=== PATIENT | male | born 1935 | race Caucasian/White ===

== ENCOUNTER 2019-02-03 09:43 | Emergency (ER) | payer MEDICARE ==
[~2019-02-03 09:43] MED LIST: Iopamidol 370 76% 100 ML VIAL ONE
[2019-02-03 10:27] LABS: #Basophils 0.1 thou/uL (0.0-0.2); #Eosinphils 0.1 thou/uL (0.0-0.7); #Lymphocytes 0.9 thou/uL (1.20-3.40); #Monocytes 0.6 thou/uL (0.11-0.59); #Neutrophils 6.1 thou/uL (1.40-6.50); %Basophils 1.1 % (0.0-1.0); %Eosinophils 1.4 % (0.0-10.0); %Lymphocytes 11.4 % (21.0-51.0); %Monocytes 7.6 % (0.0-10.0); %Neutrophils 78.4 % (42.0-75.0); Hemoglobin 13.9 g/dL (14.0-18.0); Mean Corpuscular HGB CONC 34.3 g/dL (32.0-36.0); Mean Corpuscular Hemoglobin 31.6 pg (27.0-31.0); Mean Platelet Volume 7.7 fL (7.4-10.4); Platelet Count 149 thou/uL (130-400); RBC Distribution Width 12.2 % (11.5-14.5); Red Blood Cell (RBC) Count 4.42 mill/uL (4.70-6.10); White Blood Cell (WBC) Count 7.8 thou/uL (4.8-10.8)
[2019-02-03 10:33] LABS: ALT (SGPT) 15 U/L (8-55); AST (SGOT) 14 U/L (5-34); Alkaline Phosphatase 96 U/L (40-150); Anion Gap 13 mmol/L (10-20); BUN (Urea Nitrogen) 14 mg/dL (8.4-25.7); Bilirubin, Total 0.9 mg/dL (0.2-1.2); Calc. Creatinine Clearance 0 mL/min (70-130); Calcium 9.4 mg/dL (7.8-10.44); Carbon Dioxide 25 mmol/L (23-31); Chloride 110 mmol/L (98-107); Estimated GFR-MDRD 68; Globulin 2.5 g/dL (2.4-3.5); Glucose 100 mg/dL (83-110); Potassium 3.9 mmol/L (3.5-5.1); Protein, Total 6.5 g/dL (5.8-8.1); Sodium 144 mmol/L (136-145)
--- NOTE | 2019-02-03 11:54 | CT ---
CT ABDOMEN AND PELVIS WITH IV CONTRAST: Date: 02/03/19 HISTORY: Abdominal pain. FINDINGS: The lung bases are unremarkable. There is a tiny low density in the dome of the liver, too small to characterize. No calcified gallsto chelly are seen. The spleen, pancreas, and adrenal glands appear normal. There are bilateral perirenal calculi, largest on right measuring 3.0 mm. No calculi seen in the uret ers or the urinary bladder. No hydroureteronephrosis noted on either side. There is a heterogeneously enhancing 5 cm mass in the right kidney, suspicious for malignancy. No renal vein thrombosis seen. No free air, free fluid, or lymphadenopathy seen in the abdomen or pelvis. There are vascular calcifications without evidence of aneurysmal dilatation of the abdominal aorta. D egenerative changes are present in the spine. There is a left hip arthroplasty. No osteolytic lesions are seen. There is colonic diverticulosis. Small bowel loops are not abnormally dilated. There is segmental thi ckening of the sigmoid colon. The prostate is enlarged. There is mild pericolonic inflammatory change surrounding the sigmoid colon. A small hiatal hernia is present. A normal appearing appendix is present. IMPRESSION: 1. Sigmoid diverticulosis with diverticulitis. A colonoscopy should be performed after treatment to exclude mass. 2. Nonobstructing bilateral renal calculi. 3. 5 cm right renal mass suspicious for malignancy. 4. Small hiatal hernia. 5. Prostatic enlargement. CODE T. POS: TPC
== END 2019-02-03 11:13 | disposition home or self-care (01) ==
LOC: SCSER 09:43
DX: K57.32 Diverticulitis of large intestine without perforation or abscess without bleeding (principal); K59.00 Constipation, unspecified; N28.89 Other specified disorders of kidney and ureter; I10 Essential (primary) hypertension
CPT/HCPCS: 74177; 80053; 85025; 96374; J2270; Q9967

== ENCOUNTER 2019-02-14 19:53 | Emergency (ER) | payer MEDICARE ==
[2019-02-14 20:29] LABS: #Basophils 0.1 thou/uL (0.0-0.2); #Eosinphils 0.1 thou/uL (0.0-0.7); #Lymphocytes 0.9 thou/uL (1.20-3.40); #Monocytes 0.4 thou/uL (0.11-0.59); #Neutrophils 6.5 thou/uL (1.40-6.50); %Basophils 1.1 % (0.0-1.0); %Eosinophils 1.3 % (0.0-10.0); %Lymphocytes 11.3 % (21.0-51.0); %Monocytes 5.3 % (0.0-10.0); Hemoglobin 13.7 g/dL (14.0-18.0); Mean Corpuscular HGB CONC 34.8 g/dL (32.0-36.0); Mean Corpuscular Hemoglobin 31.8 pg (27.0-31.0); Mean Corpuscular Volume 91.2 fL (78.0-98.0); Platelet Count 216 thou/uL (130-400); RBC Distribution Width 12.1 % (11.5-14.5); Red Blood Cell (RBC) Count 4.32 mill/uL (4.70-6.10); White Blood Cell (WBC) Count 8.1 thou/uL (4.8-10.8)
[2019-02-14 20:42] LABS: ALT (SGPT) 26 U/L (8-55); AST (SGOT) 22 U/L (5-34); Alkaline Phosphatase 64 U/L (40-150); Anion Gap 13 mmol/L (10-20); BUN (Urea Nitrogen) 11 mg/dL (8.4-25.7); Bilirubin, Total 0.5 mg/dL (0.2-1.2); Calc. Creatinine Clearance 0 mL/min (70-130); Calcium 9.5 mg/dL (7.8-10.44); Carbon Dioxide 26 mmol/L (23-31); Chloride 107 mmol/L (98-107); Estimated GFR-MDRD 65; Globulin 2.4 g/dL (2.4-3.5); Glucose 117 mg/dL (83-110); Lipase 42 U/L (8-78); Potassium 3.7 mmol/L (3.5-5.1); Protein, Total 6.4 g/dL (5.8-8.1); Sodium 142 mmol/L (136-145)
[2019-02-14] MEDS ORDERED: Morphine 4 MG/ML VIAL ONE (20:46)
[2019-02-14] MEDS ORDERED: Ondansetron PF 4 MG/2 ML Vial ONE (20:46)
--- NOTE | 2019-02-14 22:52 | CT ---
CT Abdomen Pelvis W Con: 02/14/2019 8:47 PM CLINICAL INFORMATION: Abdominal pain COMPARISON: 02/03/2019 TECHNIQUE: Multiple contiguous axial images were obtained and a CT of the abdomen and pelvis with IV contrast. Oral contrast was administered. Coronal reformats were performed. FINDINGS: Lower Chest: within normal limits. Abdomen: Liver: within normal limits. Bile Ducts: Normal caliber. Gallbladder: No calcified gallstones. Normal caliber wall. Pancreas: within normal limits. Spleen: within normal limits. Adrenals: within normal limits. Kidneys: There is an enhancing right renal mass measures approximately 5 cm in size suspicious for a renal cell carcinoma. A nonobstructing 4 mm calcification is seen in the right kidney. There is a punctate 1 to 2 mm nonobstructing calcification in the left kidney. Pelvis: Reproductive Organs: No pelvic masses. Ureters: within normal limits. Bladder: within normal limits. Peritoneum: No ascites or free air, no fluid collection. Bowel: Scattered diverticula in the left colon. Normal small bowel and appendix. Mesentery and Retroperitoneum: No enlarged mesenteric or retroperitoneal lymph nodes. Vessels: Atherosclerotic calcifications. Abdominal Wall: within normal limits. Bones: Degenerative changes in the spine. The patient has a left hip arthroplasty. IMPRESSION: 1. Right renal mass concerning for a renal cell carcinoma 2. Nonobstructing bilateral renal calcifications 3. Diverticulosis
== END 2019-02-14 23:30 | disposition home or self-care (01) ==
LOC: SCSER 19:53
DX: K57.90 Diverticulosis of intestine, part unspecified, without perforation or abscess without bleeding (principal); I10 Essential (primary) hypertension; Z79.899 Other long term (current) drug therapy
CPT/HCPCS: 74177; 80053; 83605; 83690; 84484; 85025; 93005; 96361; 96374; 96375; J2270; J2405

== ENCOUNTER 2019-03-25 08:50 | Day surgery (SDC) | payer MEDICARE ==
[2019-03-24 12:54] VITALS: BMI 24.9
[2019-03-25 09:15] LABS: Hemoglobin 14.3 g/dL (14.0-18.0); Mean Corpuscular HGB CONC 33.4 g/dL (32.0-36.0); Mean Corpuscular Hemoglobin 31.1 pg (27.0-31.0); Mean Platelet Volume 6.9 fL (7.4-10.4); Platelet Count 160 thou/uL (130-400); RBC Distribution Width 12.3 % (11.5-14.5); Red Blood Cell (RBC) Count 4.59 mill/uL (4.70-6.10)
[2019-03-25 09:18] LABS: PTT 30.6 SEC (22.9-36.1); Prothrombin Time 13.1 SEC (12.0-14.7)
[2019-03-25 09:41] VITALS: BP 134/82; TEMP 97
--- NOTE | 2019-03-25 12:19 | CT ---
CT guided right renal mass biopsy INDICATION: Solid mass of the right kidney COMPARISON: Prior CT the abdomen and pelvis with contrast dated February 14, 2019 TECHNIQUE: Informed consent was obtained. The patient was brought into the CT suite and placed prone on the CT table. Preprocedure CT evaluation was performed for guidance purposes only. Site overlying the lower aspect of the posterior solid renal mass was identified. The site was chosen to h ave the needle pass below the 12th posterior rib. A timeout was performed. The patient underwent conscious sedation under guidance of the radiology nursing received 1 mg of IV Versed and 50 mcg of I V fentanyl. Please see the nursing notes for full details concerning the medications administered and vital signs. Site overlying the biopsy was prepped and draped in the usual sterile fashion. Buffe red 1% lidocaine was measured overlying subcutaneous tissues and underlying paraspinal musculature. Under CT fluoroscopic guidance, a 17-gauge 15 cm trocar needle was guided down to the lesion. Two sep arate core samples were obtained of the mass utilizing an 18-gauge core biopsy device and provided to pathology who was on site to verify adequacy of tissue sampling. After confirmation of adequacy of tissue sampling, the inner trocar was replaced within the needle and the needle was removed. Pressure was held at the biopsy site to hemostasis was obtained. Postprocedure images demonstrated a small perinephric hematoma surrounding the biopsy site. The patient tolerated the biopsy without difficulty. IMPRESSION: Successful CT-guided right renal mass biopsy. Two separate core samples were obtained Transcribed Date/Time: 03/25/2019 12:45 PM
--- NOTE | 2019-03-25 12:22 | RAD ---
Inspiratory and expiratory AP views of the chest INDICATION: History of renal biopsy FINDINGS: The lungs are clear. Heart size is normal. No pleural effusion or pneumothorax is identifie d. No acute osseous abnormality is evident. IMPRESSION: No pneumothorax identified.
== END 2019-03-25 13:30 | disposition home or self-care (01) ==
LOC: CT 08:50
PROVIDERS: ATTEND Urology
PROC: 0TB03ZX Excision of Right Kidney, Percutaneous Approach, Diagnostic (ICD-10-PCS; principal; 2019-03-25)
DX: C64.1 Malignant neoplasm of right kidney, except renal pelvis (principal); I10 Essential (primary) hypertension; K21.9 Gastro-esophageal reflux disease without esophagitis; M10.9 Gout, unspecified; N40.0 Benign prostatic hyperplasia without lower urinary tract symptoms; M54.41 Lumbago with sciatica, right side; N52.01 Erectile dysfunction due to arterial insufficiency; Z79.2 Long term (current) use of antibiotics; Z79.899 Other long term (current) drug therapy; Z88.0 Allergy status to penicillin; Z91.030 Bee allergy status
CPT/HCPCS: 36415; 50200; 71045; 77012; 85027; 85610; 85730; 88305; 88333; 88334; 88341; 88342

== ENCOUNTER 2019-03-26 08:47 | Outpatient (CLI) | payer MEDICARE ==
[~2019-03-26 08:47] MED LIST changes: +Fentanyl 100 MCG/2 ML VIAL ONE; -Iopamidol 370 76% 100 ML VIAL ONE; +Midazolam HCl 2 mg/2 ml Vial ONE; +Sodium Bicarbonate 2.5 MEQ/5 ML VIAL ONE
--- NOTE | 2019-03-26 09:08 | RAD ---
Chest 2 views HISTORY: Renal mass. Biopsy. COMPARISON: 03/25/2019. FINDINGS: Cardiac silhouette and pulmonary vasculature are unremarkable. Mediastinum is midline. No c onfluent airspace consolidation, pneumothorax, or pleural fluid evident. IMPRESSION: No active cardiopulmonary abnormalities are demonstrated.
--- NOTE | 2019-03-26 13:01 | NM ---
Radionucleotide bone scan HISTORY: Renal cell carcinoma. FINDINGS: Heterogeneous uptake at each shoulder, wrist, knee, and ankle has the appearance of arthrit is. Focal uptake involves the posterior aspect of the mid cervical spine, estimated to be at the C4-5 lev el on the posterior view. No photopenic defects are reliably demonstrated. IMPRESSION: Uptake at the left mid cervical spine favored to be related to arthritis, as degenerative changes also involve the peripheral joints. No reliable evidence of osseous metastasis.
== END 2019-03-26 08:48 | disposition home or self-care (01) ==
LOC: NM 08:47
PROVIDERS: ATTEND Urology
DX: N28.89 Other specified disorders of kidney and ureter (principal); M19.90 Unspecified osteoarthritis, unspecified site
CPT/HCPCS: 71046; 78306; A9503; J2250; J3010

== ENCOUNTER 2019-04-30 09:00 | Inpatient (IN) | payer MEDICARE ==
[2019-04-30 09:55] VITALS: BMI 25.7
[2019-05-08] MEDS ORDERED: Bupivacaine HCl 0.5%/Epinephrine 1:200,000/PF 30 ml Vial ONE (06:43)
[2019-05-08] MEDS ORDERED: Fentanyl 100 MCG/2 ML VIAL ONE ×2 (06:56→12:53)
[2019-05-08] MEDS ORDERED: Levofloxacin 500 mg/D5W 100 ml Premix Bag ONE (07:08)
[2019-05-08] MEDS ORDERED: Rocuronium Bromide 50 MG/5 ML VIAL ONE (09:26)
[2019-05-08] MEDS ORDERED: Ondansetron PF 4 MG/2 ML Vial ONE ×3 (09:27→14:07)
[2019-05-08] MEDS ORDERED: HYDROmorphone 2 MG/ML VIAL ONE (09:27)
[2019-05-08] MEDS ORDERED: Albumin 5% 500 ML ONE (10:24)
--- NOTE | 2019-05-08 13:07 | RAD ---
EXAM: CHEST ONE VIEW HISTORY: Post nephrectomy secondary to renal mass. COMPARISON: 03/26/2019 FINDINGS: The cardiac silhouette and pulmonary vasculature is within normal limits. There is increased density at the left lung base probably related to atelectasis. Tiny left pleural effusion is possibility. The lungs are otherwise clear. There are linear gas densities overlying the right lateral lung base w hich have the appearance most suggestive of subcutaneous emphysema. There is subcutaneous emphysema seen in the right supraclavicular region. No obvious pneumothorax is seen. Degenerative changes are s een in the spine. IMPRESSION: 1. Minimal patchy density left lung base which may be related to atelectasis with questionable tiny l eft pleural effusion. 2. Gas densities overlying right lower lateral chest which have the appearance more suggestive of sub cutaneous emphysema. There is prominent subcutaneous edema in a right supraclavicular and infraclavicular location. No obvious pneumothorax is seen.
[2019-05-08 13:10] LABS: #Lymphocytes 0.3 thou/uL (1.20-3.40); #Monocytes 0.1 thou/uL (0.11-0.59); #Neutrophils 8.7 thou/uL (1.40-6.50); %Basophils 0.1 % (0.0-1.0); %Eosinophils 0.3 % (0.0-10.0); %Lymphocytes 3.5 % (21.0-51.0); %Neutrophils 95.1 % (42.0-75.0); Hemoglobin 12.9 g/dL (14.0-18.0); Mean Corpuscular Hemoglobin 32.5 pg (27.0-31.0); Mean Corpuscular Volume 93.1 fL (78.0-98.0); Platelet Count 129 thou/uL (130-400); RBC Distribution Width 12.2 % (11.5-14.5); Red Blood Cell (RBC) Count 3.97 mill/uL (4.70-6.10); White Blood Cell (WBC) Count 9.1 thou/uL (4.8-10.8)
[2019-05-08 13:32] LABS: ALT (SGPT) 13 U/L (8-55); AST (SGOT) 17 U/L (5-34); Albumin 4.2 g/dL (3.4-4.8); Alkaline Phosphatase 82 U/L (40-150); Anion Gap 12 mmol/L (10-20); BUN (Urea Nitrogen) 17 mg/dL (8.4-25.7); Bilirubin, Total 0.9 mg/dL (0.2-1.2); Calc. Creatinine Clearance 55 mL/min (70-130); Calcium 8.3 mg/dL (7.8-10.44); Carbon Dioxide 21 mmol/L (23-31); Chloride 108 mmol/L (98-107); Estimated GFR-MDRD 58; Glucose 155 mg/dL (83-110); Potassium 3.9 mmol/L (3.5-5.1); Protein, Total 6.2 g/dL (5.8-8.1); Sodium 137 mmol/L (136-145)
[2019-05-08] MEDS ORDERED: HYDROcodone/Acetaminophen 5/325 mg Tablet PO PRN (13:34)
[2019-05-08] MEDS ORDERED: Mag-Al 1200 mg/1200 mg/30 ML UDCUP PO PRN (13:34)
[2019-05-08] MEDS ORDERED: diphenhydrAMINE 25 MG CAP PO PRN (13:34)
[2019-05-08] MEDS ORDERED: Bisacodyl 10 MG SUPP PR PRN (13:34)
[2019-05-08] MEDS ORDERED: Oxybutynin 5 MG TAB PO PRN (13:34)
[2019-05-08] MEDS ORDERED: Morphine 4 MG/ML VIAL SLOW IVP PRN (13:34)
[2019-05-08] MEDS ORDERED: hydrALAZINE 20 MG/ML VIAL SLOW IVP PRN (13:34)
[2019-05-08] MEDS ORDERED: Ondansetron PF 4 MG/2 ML Vial IVP PRN (13:34)
[2019-05-08] MEDS ORDERED: hydrALAZINE 20 MG/ML VIAL ONE (13:57)
[2019-05-08] MEDS ORDERED: Rocuronium Bromide 10 MG/ML (10ML VIAL) ONE (14:07)
[2019-05-08] MEDS ORDERED: diphenhydrAMINE 50 MG/ML VIAL ONE (14:07)
[2019-05-08] MEDS ORDERED: Dexamethasone 20 MG/5 ML VIAL ONE (14:07)
[2019-05-08] MEDS ORDERED: ePHEDrine 50 MG/ML VIAL ONE (14:07)
[2019-05-08] MEDS ORDERED: Lidocaine 2% PF 5 ML VIAL ONE (14:07)
[2019-05-08] MEDS ORDERED: PROPOFOL 200 MG/20 ML VIAL ONE (14:07)
[2019-05-08] MEDS ORDERED: Glycopyrrolate 0.2 MG/ML 5 ML SYRINGE ONE (14:07)
[2019-05-08] MEDS: Sodium Chloride 0.9% 1,000 ML IV SCH ×2 (15:25→21:22)
[2019-05-08] MEDS: HYDROcodone/Acetaminophen 5/325 mg Tablet PO PRN ×2 (15:51→20:08)
--- NOTE | 2019-05-08 16:06 | OP ---
DATE OF PROCEDURE: 05/08/2019 SERVICE: Urology. PREOPERATIVE DIAGNOSIS: Right renal cell carcinoma. POSTOPERATIVE DIAGNOSIS: Right renal cell carcinoma. PROCEDURE PERFORMED: Right robot-assisted radical nephrectomy. INDICATION FOR PROCEDURE: Mr. Abad is an 83-year-old white male, who initially presented to me with a 5 cm right renal mass. 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 We discussed several options including continued monitoring versus surgery, and given the size of the mass, we elected to go forward with radical nephrectomy. Risks and benefits were discussed, and he has agreed to proceed forward. DESCRIPTION OF PROCEDURE: After identification of armband and verification of consent, the patient was brought back to the operating room, where he underwent general anesthesia with endotracheal intubation. He was then placed in the modified left lateral decubitus position with all pressure points padded and arms and legs secured. He was then prepped and draped in usual sterile fashion. After appropriate time-out, a Veress needle entry was made just below the right subcostal margin using a Veress needle. Insufflation was carried out under high flow and low pressure until pneumoperitoneum was achieved. Standard robotic-assisted ports were placed with a 12-mm camera port lateral to the rectus, an 8-mm port below the subcostal margin, and the left arm 8-mm port in the left lower quadrant. 12-mm administrative personal assistant port was placed on the lower aspect lateral to the rectus and lateral to the medial umbilical ligament. The robot was then docked, and the surgical portion of the robot was begun. The white line of Toldt was divided using the monopolar scissors and the colon reflected medially. The lower pole was dissected free until the ureter was identified, and then this was elevated until the psoas muscle was identified. The posterior aspect of the kidney was cleared out. The duodenum was then identified and retracted gently medially until the IVC was seen. The IVC was used to isolate the left renal vein until the superior aspect of the renal vein was identified. The renal arteries were seen cephalad to the renal vein. Once enough space was cleared out both superior and inferior and posterior to the renal hilum, the surgical vascular loaded stapler with fixed up staple lines at a 2 mm distance was used with a 60 cm load. This was positioned over the hilum and fired. It required a total of 2 different staple loads to completely divide the renal hilum. There was one of the arteries did not get fully enclosed with the renal hilum, as the patient did have 2 renal arteries. This was subsequently identified shortly after the stapling, and 2 Hem-o-alessio clips placed on that artery and then the artery divided. The remainder of the kidney attachments to the hepatorenal ligaments and to the diaphragm and surrounding tissues were then either bluntly dissected or cauterized using the vessel sealer device on the robot circumferentially. Hem-o-alessio clip was applied to the ureter, and then the ureter divided using a vessel sealer. This was mobilized circumferentially until the entire kidney was removed with Gerota's fat still surrounding the kidney. We stayed relatively close to the upper pole of the kidney to avoid removing the adrenal gland. On preoperative CT, the adrenal was located extremely high behind the liver near the IVC approximately 3 cm away from the upper pole of the kidney; therefore, I fairly confident that the right adrenal gland was not removed during the operation. Once the kidney was completely mobilized and free, it was placed in a specimen bag by using a 15 mm EndoCatch bag. The 12 mm system port had to be switched out for a 15 mm port to do this. The retroperitoneum was then thoroughly irrigated with sterile saline and then suctioned out. Once dry, Tisseel spray was sprayed all over the renal bed on the fatty tissues and over the hilum. FloSeal was also applied over the hilum and then the Surgicel applied over this. The surgical robot was then undocked, and the 12-mm camera port was removed. This was closed with a Brent-Bianka using a camera through the 15 mm port, where the specimen bag was coming out. Once the camera port was closed, the extraction site was made through the 15 mm port by extending the incision laterally along Marlene's lines. Dissection was then carried out through the muscles and fascia using a Bovie electrocautery. It is quite possibly the epigastric artery was cut during this procedure as there was a relatively large artery that was encountered, which bled upon division with the Bovie. Each end of this was suture ligated using a 0 Vicryl to ligate both arteries until there was excellent hemostasis. Once the fascia was subsequently opened, the specimen bag was removed containing the kidney, which was sent off for routine pathologic evaluation. The fascia was then closed in a single layer using #1 PDS in a running fashion to close the entire incision. The subcutaneous fat was then closed with interrupted 0 Vicryl sutures, and the skin was closed with a 4-0 Monocryl. All port sites were closed with a 4-0 Monocryl and then Dermabond applied. The patient was then taken out of positioning, awakened and taken to PACU for recovery in stable condition. COMPLICATIONS: None. ESTIMATED BLOOD LOSS: 400 mL. RETAINED TUBES OR DRAINS: A 16-Cypriot Eso catheter. SPECIMENS: Right kidney and partial ureterectomy. DISPOSITION: The patient will be admitted to the hospital for postoperative recovery. Once he is stable for discharge, we will begin a surveillance process on outpatient basis. Job ID: [id number]
[2019-05-08] MEDS: Morphine 2 MG/ML SYRINGE SLOW IVP PRN ×2 (17:15→18:47)
[2019-05-08] MEDS ORDERED: Cepastat Lozenges 1 LOZ PO PRN (19:24)
[2019-05-08] MEDS: Docusate 100 MG CAP PO SCH (20:07)
[2019-05-09] MEDS: HYDROcodone/Acetaminophen 5/325 mg Tablet PO PRN ×2 (02:07→10:45)
[2019-05-09 05:39] LABS: #Lymphocytes 0.7 thou/uL (1.20-3.40); #Monocytes 0.6 thou/uL (0.11-0.59); %Basophils 0.1 % (0.0-1.0); %Eosinophils 0.1 % (0.0-10.0); %Lymphocytes 7.2 % (21.0-51.0); %Neutrophils 86.6 % (42.0-75.0); Hemoglobin 12.1 g/dL (14.0-18.0); Mean Corpuscular HGB CONC 33.6 g/dL (32.0-36.0); Mean Corpuscular Hemoglobin 31.6 pg (27.0-31.0); Mean Corpuscular Volume 93.9 fL (78.0-98.0); Mean Platelet Volume 7.3 fL (7.4-10.4); Platelet Count 154 thou/uL (130-400); RBC Distribution Width 12.3 % (11.5-14.5); Red Blood Cell (RBC) Count 3.82 mill/uL (4.70-6.10); White Blood Cell (WBC) Count 9.3 thou/uL (4.8-10.8)
[2019-05-09 05:56] LABS: Anion Gap 10 mmol/L (10-20); BUN (Urea Nitrogen) 18 mg/dL (8.4-25.7); Calc. Creatinine Clearance 40 mL/min (70-130); Calcium 8.8 mg/dL (7.8-10.44); Carbon Dioxide 26 mmol/L (23-31); Chloride 108 mmol/L (98-107); Estimated GFR-MDRD 39; Glucose 96 mg/dL (83-110); Potassium 3.9 mmol/L (3.5-5.1); Sodium 140 mmol/L (136-145)
[2019-05-09] MEDS: Docusate 100 MG CAP PO SCH (08:29)
[2019-05-09] MEDS ORDERED: Vancomycin HCl 1 GM in Premix Bag 1 BAG IVPB ONE (09:00)
[2019-05-09] MEDS ORDERED: Amlodipine 10 MG TAB PO SCH (11:00)
--- NOTE | 2019-05-09 15:26 | PRG ---
DATE OF SERVICE: 05/09/2019 SUBJECTIVE: The patient states he is feeling extremely well. He has very minimal pain. He did take some hydrocodone last night and states his pain is 1. He has already been up walking around. He ate breakfast this morning. He has no nausea or vomiting. He still has Seo catheter in. He denies any chest pain or shortness of breath or lower extremity swelling. OBJECTIVE: VITAL SIGNS: Temperature 98.9, pulse 83, respirations 16, blood pressure 154/83, and saturation 92% on room air. GENERAL: No apparent distress, communicative, and alert. CARDIOVASCULAR: Regular rate and rhythm. ABDOMEN: Soft, nontender, and nondistended. Positive bowel sounds. Incision is clean, dry, and intact with mild ecchymosis. : Seo catheter in place with clear yellow urine. EXTREMITIES: No clubbing, cyanosis, or edema. SCDs on bilaterally. LABORATORY EVALUATION: Full set of labs are in the [employer] system, which I have reviewed. Of note, the patient's hemoglobin is 12.1, white count of 9.3, creatinine of 1.67. ASSESSMENT AND PLAN: An 83-year-old white male, status post robot assisted right nephrectomy, postop day 1, recovered extremely well. We will take out his catheter and have him do a void trial. He will walk around some more to make sure that he is able to ambulate properly and keep his pain controlled. He is already tolerating a diet. I do feel that he could probably go home today. I would like to get a BMP prior to his followup to monitor his renal function. I have gone over his postoperative instructions with him and he is fully aware and had an opportunity to ask all questions. I will see him back in approximately 1 to 2 weeks with labs done prior for a postop check. Job ID: [id number]
[2019-05-09 19:04] VITALS: BP 168/88; TEMP 98.4
--- NOTE | 2019-05-10 05:18 | DIS ---
DATE OF ADMISSION: 05/08/2019 DATE OF DISCHARGE: 05/09/2019 ADMISSION DIAGNOSIS: Right renal cell carcinoma. DISCHARGE DIAGNOSIS: Right renal cell carcinoma. PROCEDURE PERFORMED: While inpatient is robotic nephrectomy. BRIEF HISTORY: Mr. Abad is an 83-year-old white male, who had presented with a right renal mass. Biopsy confirmed clear cell carcinoma, Ton grade 2. He elected for nephrectomy with all risks and benefits. Full H and P can be found in the scanned portion of the [employer] system. HOSPITAL COURSE: After surgery, he was admitted to the hospital for postoperative recovery and a Seo catheter in. He was able to keep his pain very well controlled with oral pain medication only. He did not require any IV pain medication. His catheter was removed on postop day 1 and he voided. He was able to ambulate without difficulty, tolerated a regular diet. His creatinine was 1.67 on postop day 1 with a GFR of 39. This will be closely monitored in the future. After discussing going home, the patient did desire to go home and did not want to stay in the hospital another day. He did not have any major reason to stay in the hospital. I went over all the discharge instructions and he agreed to go home. DISPOSITION: Discharged to home. DISCHARGE CONDITION: Good. DISCHARGE MEDICATIONS: Include resuming all of his home medications except the losartan. We will discontinue that and have him do amlodipine 10 mg p.o. daily instead. He was also given a prescription for [place] for pain control. FOLLOWUP: Followup in 2 weeks with BMP done prior. Job ID: [id number]
[2019-05-10] MEDS ORDERED: Amlodipine 10 MG TAB PO SCH (09:00)
--- NOTE | 2019-05-13 19:34 | PQF ---
RIVER WING ROBIN MD [id number] SURG [id number] CLINICAL DOCUMENTATION CLARIFICATION FORM: POST DISCHARGE Addendum to original discharge summary date: ____ Late entry note date: __ DATE:05-13-19 ATTN:Kwame Allan Please exercise your independent, professional judgment in responding to the clarification form. Clinical indicators are provided on the bottom of this form for your review Can you please specify if the epigastric artery bleeding is a complication of the procedure Right robot assisted radical nephrectomy? Please check appropriate box(s): [X] epigastric artery bleeding is a complication of the procedure [ ] epigastric artery bleeding is expected during the procedure [ ] insignificant findings [ ] Other diagnosis please specify: [ ] Unable to determine CLINICAL INDICATORS: H&P 05/[address] Beard he underwent renal mass biopsy, biopsy demonstrated clear cell carcinoma Op note 05/[address] Beard Post op Diagnosis: Right renal cell carcinoma Op note 05/[address] Beard Procedure: Right robot assisted radical nephrectomy Op note 05/[address] Beard Dissection was then carried out through the muscle and fascia during the bovie cautery. It is quiet possibly the epigatric artery was cut during this procedure as there was a relatively large artery that was encountered which bled upon division with the bovie. Op note 05/[address] Beard each end of this was was suture ligated using a 0 vicryl to ligate both arteries until there was excellent hemostasis DS 05/[address] Beard He was admitted to the hospital for post operative revcovery, he was able to keep his pain very well controlled RISK FACTORS: H&P 05/08 Dr. Beard- Right renal mass H&P 05/08 Dr. Beard- Hypertension H&P 05/08 Dr. Beard- BPH Op note 05/08 Dr. Beard- Right robot assisted radical nephrectomy Op note 05/08 Dr. Beard- Right renal cell carcinoma TREATMENT: Op note 05/08 Dr. Beard- Right robot assisted radical nephrectomy NOV 22- Hydrocodone 1 tab PO NOV 22-- Morphine 2 mg Slow IV (This form is maintained as a part of the permanent medical record) 2014 [employer]. All Rights Reserved Diane [email or web address] [not provided] MTDD
== END 2019-05-09 18:55 | disposition home or self-care (01) | DRG 658 ==
LOC: SURG A 05-08 06:05
PROVIDERS: ADMIT Urology; ATTEND Urology
PROC: 0TT04ZZ Resection of Right Kidney, Percutaneous Endoscopic Approach (ICD-10-PCS; principal; 2019-05-08)
PROC: 0TB64ZZ Excision of Right Ureter, Percutaneous Endoscopic Approach (ICD-10-PCS; 2019-05-08)
PROC: 8E0W4CZ Robotic Assisted Procedure of Trunk Region, Percutaneous Endoscopic Approach (ICD-10-PCS; 2019-05-08)
DX: C64.1 Malignant neoplasm of right kidney, except renal pelvis (principal); Z96.642 Presence of left artificial hip joint; Z88.0 Allergy status to penicillin; Z79.899 Other long term (current) drug therapy
CPT/HCPCS: 36415; 71045; 80048; 80053; 85025; 86850; 86900; 86901; 88307; J0131; J0360; J0670; J1100; J1170; J1200; J1956; J2001; J2270; J2405; J2704; J3010; J3370; J3490; P9045

== ENCOUNTER 2019-04-30 09:25 | Outpatient (CLI) | payer MEDICARE ==
[2019-04-30 11:09] LABS: Hemoglobin 13.9 g/dL (14.0-18.0); Mean Corpuscular HGB CONC 33.8 g/dL (32.0-36.0); Mean Corpuscular Hemoglobin 31.3 pg (27.0-31.0); Mean Corpuscular Volume 92.5 fL (78.0-98.0); Platelet Count 162 thou/uL (130-400); RBC Distribution Width 12.2 % (11.5-14.5); Red Blood Cell (RBC) Count 4.45 mill/uL (4.70-6.10); White Blood Cell (WBC) Count 5.9 thou/uL (4.8-10.8)
[2019-04-30 11:21] LABS: Bacteria/HPF None Seen HPF (None Seen); Bilirubin Negative (Negative); Blood, Urine Negative (Negative); Clarity Clear (Clear); Glucose, Urine (Dipstick) Normal (Negative); Leukocyte Negative Leu/uL (Negative); Nitrite Negative (Negative); Protein, Urine (Dipstick) 10 mg/dL (Neg-Trace); RBC/HPF 0-3 HPF (0-3); Squamous Epithelial 0-3 HPF (0-3); Urobilinogen Normal mg/dL (Less than 2)
[2019-04-30 11:23] LABS: PTT 33.8 SEC (22.9-36.1); Prothrombin Time 13.5 SEC (12.0-14.7)
[2019-04-30 11:40] LABS: Anion Gap 13 mmol/L (10-20); BUN (Urea Nitrogen) 24 mg/dL (8.4-25.7); Calc. Creatinine Clearance 0 mL/min (70-130); Calcium 9.5 mg/dL (7.8-10.44); Carbon Dioxide 25 mmol/L (23-31); Chloride 106 mmol/L (98-107); Estimated GFR-MDRD 62; Glucose 94 mg/dL (83-110); Potassium 4.2 mmol/L (3.5-5.1); Sodium 140 mmol/L (136-145)
== END 2019-04-30 09:26 | disposition home or self-care (01) ==
LOC: LABBT 09:25
PROVIDERS: ATTEND Urology
DX: Z01.818 Encounter for other preprocedural examination (principal); N28.89 Other specified disorders of kidney and ureter
CPT/HCPCS: 80048; 81001; 85027; 85610; 85730; 87086; 93005; 93010

== ENCOUNTER 2019-10-27 10:59 | Outpatient (CLI) | payer MEDICARE ==
--- NOTE | 2019-10-27 11:31 | RAD ---
EXAM: Two views chest PROVIDED CLINICAL HISTORY: Clear cell carcinoma of right kidney. COMPARISON: 03/26/2019 FINDINGS: Cardiac silhouette and pulmonary vasculature are within normal limits. The lungs are clear. No discr ete pulmonary nodule or mass is seen. Bilateral acromioclavicular joint osteoarthritis is present. Degenerative changes are again noted in the spine. IMPRESSION: No acute cardiopulmonary process.
--- NOTE | 2019-10-27 13:34 | CT ---
CT ABDOMEN AND PELVIS WITH AND WITHOUT IV CONTRAST: Date: 10/27/2019 HISTORY: Clear cell carcinoma of the right kidney. Status post nephrectomy in April 2019. FINDINGS: Comparison made to exam of 02/14/2019. Interval changes of right nephrectomy are seen. There are tiny left-sided renal calculi. No calculi s een in the left ureter or the urinary bladder. No left-sided hydroureteronephrosis seen. The prostate is enlarged. Postcontrast images demonstrate no evidence of left-sided renal mass. There is normal c ontrast excretion into the left ureter. The lung bases are unremarkable. The liver, spleen, pancreas, and adrenal glands are unremarkable. No calcified gallstones are seen. No free air, free fluid, or lymphadenopathy seen in the abdomen or pelvis. The small bowel loops are not abnormally dilated. There is colonic diverticulosis. There are vascular calcifications without ev idence of aneurysmal dilatation of abdominal aorta. There are degenerative changes in the spine and r ight hip. There are postop changes of left hip arthroplasty. IMPRESSION: 1. Status post right nephrectomy. 2. Nonobstructing tiny left renal calculi without evidence of left renal mass. 3. Colonic diverticulosis. 4. Prostatic enlargement. POS: NICK
[2019-10-27 14:07] LABS: #Eosinphils 0.1 thou/uL (0.0-0.7); #Lymphocytes 0.8 thou/uL (1.20-3.40); #Monocytes 0.3 thou/uL (0.11-0.59); #Neutrophils 3.6 thou/uL (1.40-6.50); %Eosinophils 1.5 % (0.0-10.0); %Lymphocytes 17.3 % (21.0-51.0); %Monocytes 6.2 % (0.0-10.0); %Neutrophils 74.1 % (42.0-75.0); Hemoglobin 13.8 g/dL (14.0-18.0); Mean Corpuscular Hemoglobin 32.2 pg (27.0-31.0); Mean Corpuscular Volume 94.6 fL (78.0-98.0); Mean Platelet Volume 6.9 fL (7.4-10.4); Platelet Count 177 thou/uL (130-400); RBC Distribution Width 12.3 % (11.5-14.5); White Blood Cell (WBC) Count 4.9 thou/uL (4.8-10.8)
[2019-10-27 14:28] LABS: ALT (SGPT) 18 U/L (8-55); AST (SGOT) 19 U/L (5-34); Albumin 4.6 g/dL (3.4-4.8); Alkaline Phosphatase 89 U/L (40-110); Anion Gap 14 mmol/L (10-20); BUN (Urea Nitrogen) 22 mg/dL (8.4-25.7); Bilirubin, Total 0.7 mg/dL (0.2-1.2); Calc. Creatinine Clearance 0 mL/min (70-130); Calcium 9.5 mg/dL (7.8-10.44); Carbon Dioxide 25 mmol/L (23-31); Chloride 108 mmol/L (98-107); Estimated GFR-MDRD 45; Globulin 2.2 g/dL (2.4-3.5); Glucose 88 mg/dL (83-110); Phosphorus 3.4 mg/dL (2.3-4.7); Potassium 4.6 mmol/L (3.5-5.1); Protein, Total 6.8 g/dL (5.8-8.1); Sodium 142 mmol/L (136-145)
[2019-10-27 14:58] LABS: Bacteria/HPF None Seen HPF (None Seen); Bilirubin Negative (Negative); Blood, Urine Negative (Negative); Clarity Clear (Clear); Glucose, Urine (Dipstick) Normal (Negative); Leukocyte 75 Leu/uL (Negative); Nitrite Negative (Negative); Protein, Urine (Dipstick) 10 mg/dL (Neg-Trace); RBC/HPF 0-3 HPF (0-3); Squamous Epithelial 0-3 HPF (0-3); Urobilinogen Normal mg/dL (Less than 2)
== END 2019-10-27 11:00 | disposition home or self-care (01) ==
LOC: SCSCT 10:59
PROVIDERS: ATTEND Urology
DX: C64.1 Malignant neoplasm of right kidney, except renal pelvis (principal); N18.3 Chronic kidney disease, stage 3 (moderate); N20.0 Calculus of kidney; K57.30 Diverticulosis of large intestine without perforation or abscess without bleeding; N40.0 Benign prostatic hyperplasia without lower urinary tract symptoms; Z90.5 Acquired absence of kidney
CPT/HCPCS: 36415; 71046; 74178; 80053; 81001; 83970; 84100; 85025

== ENCOUNTER 2020-05-25 07:48 | Outpatient (CLI) | payer MEDICARE, OTHER ==
[2020-05-25 14:27] LABS: Hemoglobin 13.6 g/dL (14.0-18.0); Mean Corpuscular HGB CONC 33.6 g/dL (32.0-36.0); Mean Corpuscular Hemoglobin 32.9 pg (27.0-31.0); Mean Corpuscular Volume 97.8 fL (78.0-98.0); Mean Platelet Volume 7.1 fL (7.4-10.4); Platelet Count 180 thou/uL (130-400); RBC Distribution Width 11.9 % (11.5-14.5); Red Blood Cell (RBC) Count 4.15 mill/uL (4.70-6.10)
[2020-05-25 14:45] LABS: Anion Gap 12 mmol/L (10-20); BUN (Urea Nitrogen) 30 mg/dL (8.4-25.7); Calc. Creatinine Clearance 0 mL/min (70-130); Calcium 9.2 mg/dL (7.8-10.44); Carbon Dioxide 27 mmol/L (23-31); Chloride 108 mmol/L (98-107); Estimated GFR-MDRD 45; Glucose 84 mg/dL (83-110); Potassium 4.9 mmol/L (3.5-5.1); Sodium 142 mmol/L (136-145)
[2020-05-25 14:46] LABS: INR-International Normal Ratio 0.9; PTT 32.1 sec (22.9-36.1); Prothrombin Time 12.3 sec (12.0-14.7)
[2020-05-25 14:59] LABS: Bacteria/HPF None Seen HPF (None Seen); Bilirubin Negative (Negative); Blood, Urine Negative (Negative); Clarity Clear (Clear); Glucose, Urine (Dipstick) Normal (Negative); Ketone, Urine Negative (Negative); Leukocyte 75 Leu/uL (Negative); Nitrite Negative (Negative); Protein, Urine (Dipstick) 10 mg/dL (Neg-Trace); RBC/HPF 0-3 HPF (0-3); Specific Gravity, Urine 1.018 (1.002-1.036); Squamous Epithelial 0-3 HPF (0-3); Urobilinogen Normal mg/dL (Less than 2)
[2020-05-26 13:01] LABS: SARS-CoV-2 MS2 Positive; SARS-CoV-2 N Gene Negative; SARS-CoV-2 S Gene Negative; SARS-CoV-2 by NAA Not Detected (NotDetected); SARS-CoV-2 orf1ab Negative
--- NOTE | 2020-05-26 20:53 | EKG ---
Test Reason : Blood Pressure : / mmHG Vent. Rate : 055 BPM Atrial Rate : 055 BPM P-R Int : 218 ms QRS Dur : 110 ms QT Int : 414 ms P-R-T Axes : 053 034 029 degrees QTc Int : 396 ms Sinus bradycardia with 1st degree A-V block Otherwise normal ECG No previous ECGs available Confirmed by Michi LUTZ ([id number]) on 05/26/2020 8:52:42 PM Referred By: NELI Confirmed By:Michi LUTZ
== END 2020-05-25 07:49 | disposition home or self-care (01) ==
LOC: LABBT 07:48
PROVIDERS: ATTEND Urology
DX: Z01.818 Encounter for other preprocedural examination (principal); Z20.828 Contact with and (suspected) exposure to other viral communicable diseases; C64.1 Malignant neoplasm of right kidney, except renal pelvis; N40.1 Benign prostatic hyperplasia with lower urinary tract symptoms; N20.0 Calculus of kidney; N18.3 Chronic kidney disease, stage 3 (moderate); R35.0 Frequency of micturition; Z90.5 Acquired absence of kidney
CPT/HCPCS: 80048; 81001; 85027; 85610; 85730; 87086; U0003; 87635; 93005; 93010

== ENCOUNTER 2020-05-28 07:10 | Day surgery (SDC) | payer MEDICARE ==
[2020-05-25 13:43] VITALS: BMI 25.0
[2020-05-28] MEDS ORDERED: Levofloxacin 500 mg/D5W 100 ml Premix Bag ONE (09:13)
[2020-05-28] MEDS ORDERED: B & O ONE (09:13)
[2020-05-28] MEDS ORDERED: Fentanyl 100 MCG/2 ML VIAL ONE (09:18)
[2020-05-28] MEDS ORDERED: EPHEDRINE 25 MG/5 ML SYRINGE ONE (11:41)
[2020-05-28] MEDS ORDERED: Lidocaine 1% PF 5 ML VIAL ONE (11:41)
[2020-05-28] MEDS ORDERED: PROPOFOL 200 MG/20 ML VIAL ONE (11:41)
[2020-05-28] MEDS ORDERED: Phenazopyridine HCl 97.5 MG TABLET ONE (12:18)
--- NOTE | 2020-05-28 12:43 | OP ---
DATE OF PROCEDURE: 05/28/2020 SERVICE: Urology. PREOPERATIVE DIAGNOSIS: BPH with urinary obstruction. POSTOPERATIVE DIAGNOSIS: BPH with urinary obstruction. PROCEDURE PERFORMED: UroLift with 8 implants. INDICATIONS FOR PROCEDURE: Mr. Abad is an 84-year-old white male with BPH and urinary complaints. He has failed Flomax previously and is on Avodart currently monotherapy. His prostate is enlarged and we discussed UroLift as a possible treatment option. After discussion of risks and benefits, he has agreed to proceed forward. DESCRIPTION OF PROCEDURE: After identification of armband and verification of consent, the patient was brought back to the operating room, where he underwent total intravenous anesthesia. He was then placed in dorsal lithotomy position and prepped and draped in usual sterile fashion. After appropriate time-out, a lubricated 21-[place] rigid cystoscope with visual obturator was passed through the urethra. The prostate was obstructive as previously had been seen on outpatient cystoscopy. The bladder was trabeculated as previously seen on outpatient cystoscopy as well. The visual obturator was switched out for the UroLift implant device. The initial implant was placed near the patient's left base of the prostate. The UroLift was positioned with 20 degrees of lateral compression and anterior lift. Once positioned in the right location away from the bladder neck, the safety was released and the blue trigger was deployed for the Nitinol needle. The tension was set, and the capsular tab placed with the woods trigger. The UroLift was then advanced forward until the white line could be seen in the keyhole and then the urethral end piece deployed using the back blue trigger. This was then repeated on the patient's right side toward the base of the prostate and again at the apex on the left and right side. There was a significant amount of obstructing tissue in the mid section of the prostate as well as some anterior droop especially on the patient's left. An additional implant was placed in the left anterior prostate to try and lift the tissues up higher as well as an additional implant in the mid prostate on both the left and right. One additional implant was then again placed at the patient's left apex to remove some of the prostate tissue, which was bulging in. At this point, the prostate did have a nice channel. There was still a little bit of protrusion at the right apex and again at the bladder neck on the left, but these were relatively minimal and did not appear to be obstructing. To avoid excessive implant usage, I did feel the prostate was wide enough open and there was a clear channel visible from the verumontanum into the bladder neck. I did feel that the patient would be able to void much better with this and to avoid further implants, which may not be necessary, we elected to finish the procedure. The cystoscope was then removed. An 18-Bur[place] Seo catheter was placed into the patient's bladder with ease. 10 mL of sterile water was placed into the balloon. B and O suppository was placed. The catheter was affixed to a gravity bag. The patient was taken out of positioning, awakened, taken to PACU for recovery in stable condition. COMPLICATIONS: None. ESTIMATED BLOOD LOSS: Minimal. RETAINED TUBES AND DRAINS: An 18-[place] Seo catheter to gravity drainage. SPECIMENS: None. IMPLANTS USED: 8. DISPOSITION: The patient will undergo a void trial, pending the color of his urine. He will then be discharged and his followup will be handled on an outpatient basis. Job ID: [id number]
== END 2020-05-28 13:52 | disposition home or self-care (01) ==
LOC: SDC 07:10
PROVIDERS: ATTEND Urology
PROC: 0T7D8DZ Dilation of Urethra with Intraluminal Device, Via Natural or Artificial Opening Endoscopic (ICD-10-PCS; principal; 2020-05-28)
DX: N40.1 Benign prostatic hyperplasia with lower urinary tract symptoms (principal); N13.8 Other obstructive and reflux uropathy; N32.89 Other specified disorders of bladder; I10 Essential (primary) hypertension; M10.9 Gout, unspecified; K21.9 Gastro-esophageal reflux disease without esophagitis; Z79.899 Other long term (current) drug therapy; Z88.0 Allergy status to penicillin; Z91.030 Bee allergy status; Z90.5 Acquired absence of kidney
CPT/HCPCS: J1956; J2704; J3010